=== PATIENT | male | born 1995 | race Caucasian/White ===

== ENCOUNTER 2017-05-21 11:41 | Inpatient (IN) | payer BC ==
--- NOTE | 2017-05-21 11:54 | EDPHY ---
HPI/HX/ROS/PE/MDM Narrative: CHIEF COMPLAINT: Suicidal ideation, M1 hold HPI: The patient is a 21-year-old male with history of depression. He arrives on an M1 hold from [facility] with a complaint of depression and suicidal ideation. The patient expresses suicidal ideation with a partially formed plan to do something that "involves asphyxiation." He does have access to a gun the household but did not plan on treating self. He denies alcohol or drug abuse. He denies ingestion. REVIEW OF SYSTEMS: Aside from elements discussed in the HPI, a comprehensive 10-point review of systems was reviewed and is negative. PMH: Includes depression. No history of suicide attempt. SOCIAL HISTORY: Single. Student. PHYSICAL EXAM: General:Patient is alert, in no acute distress. ENT:Eyes are normal to inspection. ENT inspection normal. Neck: Normal inspection. Full range of motion. Respiratory:No respiratory distress. Breath sounds normal bilaterally. Cardiovascular: Regular rate and rhythm. Strong peripheral pulses. Normal cap refill. Abdomen:The abdomen is nontender to palpation. There are no peritoneal signs. There are normal bowel sounds. Back: Normal to inspection. No tenderness to palpation. Skin: Normal color. No rash. Warm and dry. Extremities: Normal appearance. Full range of motion. Neuro: Oriented x3. Normal motor function. Normal sensory function. Psychiatric: Composed, polite, admits to suicidal ideation. (Fabrice Jaime) ED Course: I assumed are of the patient at 0230PM. Update at 6:30 p.m.: The patient was seen by the mental health tank builder and erector and has been accepted for inpatient psychiatric admission by Dr. Louise here at [facility]. I have filled out the EMTALA transfer form. (Ruben Carrasco) - Data Points Laboratory Results: Laboratory Results 05/21/17 11:51 05/21/17 11:51 05/21/17 05/21/17 05/21/17 12:30 11:51 11:51 WBC 6.83 10^3/uL 10^3/uL (3.80-9.50) RBC 5.29 10^6/uL 10^6/uL (4.40-6.38) Hgb 16.9 g/dL g/dL (13.7-17.5) Hct 46.5 % % (40.0-51.0) MCV 87.9 fL fL (81.5-99.8) MCH 31.9 pg pg (27.9-34.1) MCHC 36.3 g/dL g/dL (32.4-36.7) RDW 12.5 % % (11.5-15.2) Plt Count 294 10^3/uL 10^3/uL (150-400) MPV 8.9 fL fL (8.7-11.7) Neut % (Auto) 61.3 % % (39.3-74.2) Lymph % (Auto) 26.9 % % (15.0-45.0) [place] % (Auto) 9.2 % % (4.5-13.0) Eos % (Auto) 1.8 % % (0.6-7.6) Baso % (Auto) 0.4 % % (0.3-1.7) Nucleat RBC Rel Count 0.0 % % (0.0-0.2) Absolute Neuts (auto) 4.18 10^3/uL 10^3/uL (1.70-6.50) Absolute Lymphs (auto) 1.84 10^3/uL 10^3/uL (1.00-3.00) Absolute Monos (auto) 0.63 10^3/uL 10^3/uL (0.30-0.80) Absolute Eos (auto) 0.12 10^3/uL 10^3/uL (0.03-0.40) Absolute Basos (auto) 0.03 10^3/uL 10^3/uL (0.02-0.10) Absolute Nucleated RBC 0.00 10^3/uL 10^3/uL (0-0.01) Immature Gran % 0.4 % % (0.0-1.1) Immature Gran # 0.03 10^3/uL 10^3/uL (0.00-0.10) Sodium 144 mEq/L mEq/L (134-144) Potassium 4.3 mEq/L mEq/L (3.5-5.2) Chloride 106 mEq/L mEq/L (97-110) Carbon Dioxide 21 mEq/l L mEq/l (22-31) Anion Gap 17 mEq/L H mEq/L (8-16) BUN 13 mg/dL mg/dL (7-23) Creatinine 1.0 mg/dL mg/dL (0.7-1.3) Estimated GFR > 60 Glucose 81 mg/dL mg/dL (70-100) Calcium 9.7 mg/dL mg/dL (8.5-10.4) Urine Opiates Screen NEGATIVE (NEGATIVE) Urine Barbiturates NEGATIVE (NEGATIVE) Ur Phencyclidine Scrn NEGATIVE (NEGATIVE) Ur Amphetamine Screen NEGATIVE (NEGATIVE) U Benzodiazepines Scrn NEGATIVE (NEGATIVE) Urine Cocaine Screen NEGATIVE (NEGATIVE) U Marijuana (THC) Screen NEGATIVE (NEGATIVE) General Time Seen by Provider: 05/21/17 11:42 Initial Vital Signs: Initial Vital Signs Temperature (C) 36.5 C 05/21/17 11:57 Heart Rate 106 H 05/21/17 11:57 Respiratory Rate 16 05/21/17 11:57 Blood Pressure 146/99 H 05/21/17 11:57 O2 Sat (%) 95 05/21/17 11:57 O2 Delivery Mode Room Air Allergies/Adverse Reactions: No Known Allergies Allergy (Unverified 05/21/17 11:56) Home Medications: Medication Instructions Recorded NK [No Known Home Meds] 05/21/17 Departure - Departure Disposition: [facility] IP Clinical Impression: Severe major depression, Suicidal ideation Condition: Good Referrals: NONE *PRIMARY CARE P,. [Primary Care Provider] - As per Instructions
[2017-05-21 12:40] LABS: % IMMATURE GRANULYOCYTES 0.4 % (0.0-1.1); ABSOLUTE IMMATURE GRANULOCYTES 0.03 10^3/uL (0.00-0.10); ADD DIFF? NO; ADD MORPH? NO; ADD SCAN? NO; ATYPICAL LYMPHOCYTE FLAG 10 (0-99); FRAGMENT RBC FLAG 0 (0-99); HEMATOCRIT 46.5 % (40.0-51.0); HEMOGLOBIN 16.9 g/dL (13.7-17.5); LEFT SHIFT FLG 0 (0-99); LIPEMIA HEMOLYSIS FLAG 90 (0-99); MEAN CELL HEMOGLOBIN 31.9 pg (27.9-34.1); MEAN CELL HEMOGLOBIN CONCENTR. 36.3 g/dL (32.4-36.7); MEAN CELL VOLUME 87.9 fL (81.5-99.8); MEAN PLATELET VOLUME 8.9 fL (8.7-11.7); PLATELET CLUMPS FLAG 0 (0-99); PLATELET COUNT 294 10^3/uL (150-400); RED BLOOD CELL COUNT 5.29 10^6/uL (4.40-6.38); RED CELL DISTRIBUTION WIDTH 12.5 % (11.5-15.2)
[2017-05-21 12:56] LABS: ANION GAP 17 mEq/L (8-16); CALCIUM 9.7 mg/dL (8.5-10.4); CARBON DIOXIDE 21 mEq/l (22-31); CHLORIDE 106 mEq/L (97-110); GLOMERULAR FILTRATION RATE > 60; GLUCOSE 81 mg/dL (70-100); POTASSIUM 4.3 mEq/L (3.5-5.2); SODIUM 144 mEq/L (134-144)
[2017-05-21] MEDS ORDERED: LORazepam 0.5 MG TAB PO PRN (20:35)
[2017-05-21] MEDS ORDERED: ACETAMINOPHEN 325 MG TAB PO PRN (20:35)
[2017-05-21] MEDS ORDERED: MAG HYDROX/AL HYDROX/SIMETH 30 ML UDCUP PO PRN (20:35)
[2017-05-21] MEDS ORDERED: MAGNESIUM HYDROXIDE 30 ML UDCUP PO PRN (20:35)
[2017-05-21] MEDS ORDERED: NICOTINE POLACRILEX 2 MG GUM B PRN (20:35)
[2017-05-21] MEDS: MELATONIN 3 MG TAB PO PRN (21:53)
[2017-05-22] MEDS ORDERED: LORazepam 0.5 MG TAB PO PRN (11:19)
[2017-05-22] MEDS: FLUoxetine 10 MG CAP PO SCH (12:05)
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
[2017-05-22] MEDS ORDERED: CEPACOL LOZENGE PO PRN (13:18)
--- NOTE | 2017-05-22 14:48 | BCON ---
[f rep st] BEHAVIORAL HEALTH CONSULTATION INTERNAL MEDICINE CONSULTATION DATE OF CONSULTATION: 05/22/2017 REFERRING PHYSICIAN: Ilene Louise MD REASON FOR REFERRAL: Medical clearance for inpatient behavioral health stay. HISTORY OF PRESENT ILLNESS: This patient came to the emergency department on an M1 hold from the [facility] on [address], complaining of depression and suicidal ideation. He was evaluated by the mental health team and admitted for further psychiatric care. He currently complains of a sore throat and he reports that he is a carrier of Streptococcus. Otherwise, he is without acute complaints. PAST MEDICAL HISTORY: Other than frequent streptococcal pharyngeal infections, he denies any history of medical illnesses. PAST SURGICAL HISTORY: He denies any surgeries. MEDICATIONS: He was not on any medications. 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 He lives with his mother in [place]. He is a nonsmoker, nondrinker. FAMILY HISTORY: There is a family history of alcoholism on his father's side, and some mental illness on his mother's side. REVIEW OF SYSTEMS: He denies facial pain or cough. He has mild head congestion. He denies dyspnea. Other than a sore throat, he is not in pain. He denies nausea, vomiting, constipation, diarrhea. Otherwise, a 10-point review of systems is negative. He reports he does not get very much exercise. PHYSICAL EXAM: VITAL SIGNS: Blood pressure yesterday evening was 142/82, heart rate was 91, respiratory rate was 14, oxygen saturation was 95% on room air. Temperature was 36.8 degrees centigrade. His weight is 99.8 kg for a body mass index of 31.6. GENERAL: This is an obese man, appears his chronologic age, cooperative and in no acute distress. HEENT: Extraocular movements are intact. Pupils are equal, round, and reactive to light. Mucous membranes are moist. Dentition is in good condition. He has an uncrowded airway, Mallampati class 1. There is no posterior oropharyngeal mucus. His uvula and soft palate are slightly erythematous. There are no exudates. NECK: Without lymphadenopathy and is supple. HEART: There is regular rate and rhythm with no murmurs, rubs, or gallops. LUNGS: Clear to auscultation bilaterally. ABDOMEN: Benign. EXTREMITIES: No cyanosis, clubbing, or edema. NEUROLOGIC: He is alert and oriented x3. Cranial nerves 2-12 are grossly intact. There is no focal weakness. Sensation is intact to light touch. Gait is within normal limits. LABORATORY STUDIES: Drawn in the emergency department: CBC was entirely within normal limits. Serum chemistry revealed a slightly low carbon dioxide of 21 and a very slightly elevated anion gap of 17; otherwise, renal function, electrolytes and TSH were within normal limits. Toxicology screen in the urine was negative for any substances of abuse. ASSESSMENT/RECOMMENDATIONS: 1. Mental health issues, pending further evaluation and management per Psychiatry and the mental health team. 2. Pharyngitis, likely viral. Unless he develops signs or symptoms more specific to Streptococcus, including oropharyngeal exudates, I will not order a streptococcal screen. I have ordered Cepacol lozenges for discomfort and acetaminophen is already ordered for him. 3. Obesity. Advised increased exercise. Consider avoiding psychiatric medications which could exacerbate weight gain. 4. Elevated blood pressure. Query whether this may have been due to stress, which also may have caused his low CO2 and anion gap. Advised monitoring blood pressure and if it remains elevated, would consider initiating treatment. Exercise would be good for his blood pressure, as well. I see no medical contraindications to this patient's continued stay in the inpatient behavioral health unit or to any psychiatric medications or procedures. Thank you very much for including me in the care of this patient. Please do not hesitate to contact me or the hospitalist service should there be need for further medical evaluation. /[id number]/MODL MTDD
[2017-05-22] MEDS: hydrOXYzine HCL 25 MG TAB PO SCH (22:11)
[2017-05-23] MEDS: FLUoxetine 10 MG CAP PO SCH (09:25)
[2017-05-23] MEDS ORDERED: FLU VACC QS 2017-18 (3YR+)/PF 0.5 ML SYR (FLUARIX QUAD) IM ONE (13:00)
--- NOTE | 2017-05-23 13:45 | SOAPPROG ---
SOAP Progress Note Assessment/Plan: Assessment: 21 yo reported SI at [facility] intake appt on 05/21/17, placed on M1 and sent to ED. 05/23/17 13:41 1. Continue Prozac 10mg. Pt denies any SE's. 2. MOC has removed gun from home. 3. Patient willing to sign in voluntary when hold expires and stay until Thursday. Subjective: Met with patient, reviewed chart and discussed with staff. Patient says his mood is "OK" and feels like he can "enjoy" things now. He says he is looking forward to "playing chess" with peer this afternoon. He denies any thoughts, plan or intent to hurt himself or anyone else. Objective: Vital Signs Temp Pulse Resp BP Pulse Ox 36.4 C 101 H 14 135/80 H 99 05/23/17 06:00 05/23/17 06:00 05/23/17 06:00 05/23/17 06:00 05/23/17 06:00 MSE: Pleasant, polite, cooperative. Mood: "OK" Affect: Euthymic TP: Linear TC : Denies any SI/HI, no psychosis Insight/Judgment: Fair - Time Spent With Patient Time Spent With Patient: 20" - Pending Discharge Pending Discharge Within 24 Hours: No Pending Discharge Within 48 Hours: Yes Pending Discharge Date: 05/25/17 (Plan to d/c on Thursday) Pending Discharge Time: 11:00 ICD10 Worksheet Patient Problems: Problems Problem Status Onset Severe major depression Acute Suicidal ideation Acute
[2017-05-23] MEDS: hydrOXYzine HCL 25 MG TAB PO SCH (21:08)
[2017-05-24] MEDS: FLUoxetine 10 MG CAP PO SCH (08:51)
--- NOTE | 2017-05-24 12:48 | SOAPPROG ---
SOAP Progress Note Assessment/Plan: Assessment: 21 yo reported SI at [facility] MH intake appt on 05/21/17, placed on M1 and sent to ED. 05/23/17 13:41 1. Continue Prozac 10mg. Pt denies any SE's. 2. MOC has removed gun from home. 3. Patient willing to sign in voluntary when hold expires and stay until Thursday. 05/24/17 12:43 1. CCM - patient stable 2. MOC feels patient will be safe at her house 3. Patient has completed safety plan 4. Pt agrees to sign in voluntarily with plan to d/c tomorrow Subjective: Met with patient and d/w staff. Spoke briefly to patient's MOC who is visiting. She agrees patient is ready to leave hospital and feels he will be safe staying at her house. Patient agrees. He says his mood is better since admission and he denies any thoughts, plan or intent to harm himself. discussed importance of f/u with [facility] to receive ongoing mental health tx. MD feels patient would benefit from individual and group therapy to address some of his anxiety issues , especially his social anxiety and lack of friends and positive social connections. Objective: Vital Signs Temp Pulse Resp BP Pulse Ox 36.5 C 87 96 H 132/72 H 99 05/24/17 06:00 05/24/17 06:00 05/24/17 06:00 05/24/17 06:00 05/23/17 06:00 MSE: Affect: Euthymic Mood: "OK" TP: Linear TC: Denies any SI/HI, no AH/VH Insight/Judgment: Fair - Time Spent With Patient Time Spent With Patient: 15" - Pending Discharge Pending Discharge Within 24 Hours: Yes Pending Discharge Date: 05/25/17 (Likely to d/c home on Thursday) Pending Discharge Time: 11:00 ICD10 Worksheet Patient Problems: Problems Problem Status Onset Severe major depression Acute Suicidal ideation Acute
[2017-05-24] MEDS: MELATONIN 3 MG TAB PO PRN (21:07)
[2017-05-24] MEDS: hydrOXYzine HCL 25 MG TAB PO SCH (21:07)
[2017-05-25 06:55] VITALS: BP 124/69; PULSE 72; RESP 16; TEMP 97.6; O2SAT 96
[2017-05-25] MEDS: FLUoxetine 10 MG CAP PO SCH (08:37)
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
== END 2017-05-25 13:05 | disposition home or self-care (01) | DRG 885 ==
LOC: BBEH 19:15
PROVIDERS: ADMIT Psychiatry & Neurology Behavioral Neurology & Neuropsychiatry
DX: F32.2 Major depressive disorder, single episode, severe without psychotic features (principal); R45.851 Suicidal ideations; J02.9 Acute pharyngitis, unspecified; R03.0 Elevated blood-pressure reading, without diagnosis of hypertension; E66.9 Obesity, unspecified; Z68.31 Body mass index [BMI] 31.0-31.9, adult; Z63.79 Other stressful life events affecting family and household; Z81.8 Family history of other mental and behavioral disorders; Z23 Encounter for immunization
CPT/HCPCS: 80305; G0008